=== PATIENT | female | born 1950 | race Hispanic/Latino ===

== ENCOUNTER 2020-04-20 10:49 | Outpatient (CLI) | payer MEDICARE, BC ==
--- NOTE | 2020-04-20 12:26 | Mammography Report ---
RIGHT DIGITAL DIAGNOSTIC MAMMOGRAM WITH CAD , 04/20/2020 RIGHT LIMITED BREAST ULTRASOUND CLINICAL INFORMATION / INDICATION: F/U abnormal mammogram TECHNIQUE: Digital right mammographic imaging was performed. Magnification views were obtained. Limit ed ultrasound was performed. This examination was interpreted with the benefit of Computer-Aided Dete ction (CAD) analysis. COMPARISON: Prior mammogram 04/02/2019 and 03/04/2019 FINDINGS: Breast Density: The breasts are heterogeneously dense, which may obscure small masses. MAMMOGRAPHIC FINDINGS: There is focal irregular asymmetry in the right breast at 2:00, middle depth. This appears slightly more prominent than on prior imaging and now contains visible calcifications. S pot magnification views confirm the presence of an irregular masslike density measuring approximately 11 mm in the 2:00 middle depth location. ULTRASOUND FINDINGS: Targeted ultrasound evaluation was performed of the area of interest. Sonograp hic evaluation of the right breast, upper inner quadrant, does demonstrate an irregular solid mass in the 1:00 position, 5 cm from nipple measuring approximately 9 mm in diameter. There are a few calcif ications identified within the mass, as noted mammographically. IMPRESSION: Solid irregular mass with associated calcifications in the right breast at 1-2:00. The ap pearance is concerning for breast carcinoma. Further evaluation with surgical consultation and ultras ound-guided biopsy is recommended. Follow up recommendation: Surgical consultation with ultrasound-guided biopsy. BI-RADS Category 5: Highly Suggestive of Malignancy. A "normal" or negative report should not discourage follow up or biopsy of a clinically significant f inding. A written summary of these findings will be mailed to the patient. The patient will be entered into a mammography reporting system which will generate a reminder letter for the patient's next appointmen t at the appropriate interval. According to the [employer], yearly mammograms are recommended starting at age 40 and continuing as long as a woman is in good health. Breast MRI is recommended for women with an mindy roximately 20-25% or greater lifetime risk of breast cancer, including women with a strong family his tory of breast or ovarian cancer and women who have been treated for Hodgkin's disease. Signer Name: Luciana Solares MD Signed: 04/20/2020 12:21 PM Workstation Name: [id number]
== END 2020-04-20 10:50 | disposition home or self-care (01) ==
LOC: SPVWC 10:49
PROVIDERS: ATTEND Surgery
DX: R92.1 Mammographic calcification found on diagnostic imaging of breast (principal)

== ENCOUNTER 2020-04-27 14:05 | Outpatient (CLI) | payer MEDICARE, BC ==
--- NOTE | 2020-04-27 15:16 | Mammography Report ---
DIGITAL DIAGNOSTIC MAMMOGRAM WITH CAD , 04/27/2020 CLINICAL INFORMATION / INDICATION: The patient has a history of abnormal right mammogram and underwen t ultrasound-guided biopsy of the right breast earlier today. Left mammogram is performed to keep pat ient on routine screening schedule. TECHNIQUE: Digital left mammographic imaging was performed. This examination was interpreted with the benefit of Computer-aided Detection analysis. COMPARISON: 03/04/2019, 03/01/2017 FINDINGS: Breast Density: The breasts are heterogeneously dense, which may obscure small masses. No dominant mass, suspicious calcifications or architectural distortion in the left breast. IMPRESSION: No mammographic evidence of malignancy. Please note that patient had ultrasound-guided ri t breast biopsy today. Biopsy results are pending at this time. She has follow-up surgical consulta tion schedule with Dr. Avalos. Follow up recommendation: No recall. BI-RADS Category 2: Benign. A "normal" or negative report should not discourage follow up or biopsy of a clinically significant f inding. A written summary of these findings will be mailed to the patient. The patient will be entered into a mammography reporting system which will generate a reminder letter for the patient's next appointmen t at the appropriate interval. According to the [employer], yearly mammograms are recommended starting at age 40 and continuing as long as a woman is in good health. Breast MRI is recommended for women with an mindy roximately 20-25% or greater lifetime risk of breast cancer, including women with a strong family his tory of breast or ovarian cancer and women who have been treated for Hodgkin's disease. Signer Name: Patricia Hart MD Signed: 04/27/2020 3:12 PM Workstation Name: [id number]
--- NOTE | 2020-04-29 08:09 | Ultrasound Report ---
Procedure: Ultrasound-guided right biopsy, 04/27/2020 Clinical information/indication: Right breast mass. The patient presents for ultrasound-guided biopsy of irregular mass at the 1:00 position. Comparison: Diagnostic mammogram and ultrasound, 04/20/2020 Procedure: The benefits, indications and risks were discussed with the patient including but not limi elliott to bleeding, infection, hematoma formation, and inadequate tissue sampling. The patient agreed to proceed with both verbal and written consent. A timeout procedure was performed using 2 patient iden tifiers. The breast was prepped and draped in the usual sterile fashion. Lidocaine 1% with and without epineph rine were used for local anesthesia. Under direct ultrasound guidance, multiple core samples were obt ained of the mass at the 1:00 position 5 cm from the nipple. A biopsy marker was then placed. Biopsy device was removed and hemostasis achieved with manual pressure. A sterile dressing was applied to t he skin. The patient tolerated the procedure without difficulty. No complications were encountered. Postbiopsy instructions were discussed with the patient and given in writing. Specimens were sent to pathology . IMPRESSION: 1. Technically successful right breast biopsy. Biopsy results are pending and will be reported in an addendum. Signer Name: Patricia Hart MD Signed: 04/27/2020 3:06 PM Workstation Name: [id number]
== END 2020-04-27 14:06 | disposition home or self-care (01) ==
LOC: SPVWC 14:05
PROVIDERS: ATTEND Surgery
DX: N63.12 Unspecified lump in the right breast, upper inner quadrant (principal); R92.8 Other abnormal and inconclusive findings on diagnostic imaging of breast; C50.211 Malignant neoplasm of upper-inner quadrant of right female breast; Z17.0 Estrogen receptor positive status [ER+]
CPT/HCPCS: 88305

== ENCOUNTER 2020-05-17 10:09 | Outpatient (CLI) | payer MEDICARE, BC ==
--- NOTE | 2020-05-18 09:08 | Magnetic Resonance Report ---
Bilateral breast MRI with and without contrast. History: New diagnosis right breast cancer Procedure: Axial T1 and T2-weighted fat-sat images were obtained precontrast. 14 cc MultiHance was i njected intravenously and serial axial T1-weighted images with fat saturation were obtained postcontr ast. 3-D MIP projections, Kinetic analysis and subtraction imaging was utilized to evaluate. A [employer] 8 channel breast coil was utilized for image acquisition. Comparison: Right mammogram 04/20/2020, left mammogram 04/27/2020, right breast ultrasound 04/20/2020, rig ht breast ultrasound-guided biopsy images 04/27/2020 Findings: Background level of enhancement is moderate. No suspicious axillary or clavicular nodes are identified. No abnormal bone marrow signal is seen. No significant chest wall enhancement is noted. In the right lobe of the liver superior portion at the dome of the diaphragm, a hyperintense ovoid 18 mm lesion is seen on coronal STIR and T2-weighted sequ ences, likely a cyst. Right breast: Fibrocystic changes are seen. Moderate background proliferative changes reduce sensitiv ity. These areas appear to show benign kinetics. The known 11 mm malignant lesion with biopsy changes is seen in the upper right breast just medial to the midline plain. This is approximately 4 cm from the chest wall, 2.3 cm from the medial skin surface, and 5.2 cm from the nipple. No other significant lesions are seen. Left breast: Mild to moderate proliferative changes are seen decreasing sensitivity. Within the fat o f the medial left mid breast at the level of the nipple at 9:00, 5 cm from the nipple, 5.3 cm from th e chest wall, and 1.2 cm from the medial skin surface, a well-defined and somewhat reniform 5 mm nodu le is seen with mild enhancement showing benign kinetics. This shows increased signal on T2-weighted imaging. No obvious mammographic correlate is seen. No other lesions are seen. Impression: 1. Known malignant lesion is seen on the right with biopsy changes. Though there are moderate pleura changes in multiple areas, no strongly suspicious lesion is seen elsewhere the right breast. 2. Probable small lymph node in the medial left breast. I doubt this is significant lesion but I woul d suggest targeted ultrasound. BIRADS: 0: Incomplete - needs additional imaging evaluation Signer Name: Marco A Catalan MD Signed: 05/18/2020 9:04 AM Workstation Name: [id number]
== END 2020-05-17 10:10 | disposition home or self-care (01) ==
LOC: SPVIMAG 10:09
PROVIDERS: ATTEND Surgery
DX: C50.211 Malignant neoplasm of upper-inner quadrant of right female breast (principal); R91.8 Other nonspecific abnormal finding of lung field; R59.0 Localized enlarged lymph nodes; N60.11 Diffuse cystic mastopathy of right breast
CPT/HCPCS: A9577; C8908; 77049

== ENCOUNTER 2020-06-08 09:49 | Outpatient (CLI) | payer MEDICARE, BC ==
--- NOTE | 2020-06-08 11:39 | Ultrasound Report ---
ULTRASOUND BREAST LEFT LIMITED, 06/08/2020 CLINICAL INFORMATION / INDICATION: Patient presents for second look ultrasound of an enhancing nodul e in the left breast seen on recent breast MRI. Patient has recent biopsy proven right breast cancer. TECHNIQUE: Targeted ultrasound evaluation was performed of the area of interest. COMPARISON: Breast MRI 05/17/2020 and prior mammograms dating back to 03/01/2017 (under name Arnav Karsonemerson david). FINDINGS: Targeted ultrasound was performed of the 9:00 left breast. There are 2 foci of benign fibrocystic lucian nge in the left breast 9:00 position located 2 cm from the nipple, each measuring up to approximately 5 mm. There is no definite sonographic correlate for the small enhancing nodule seen on recent MRI. However, the nodule on MRI demonstrated benign features most compatible with a benign intramammary ly mph node. Additionally, there appears to be a corresponding nodular density mammographically which is stable compared with prior mammograms dating back to 02/2017, further suggesting a benign etiology. IMPRESSION: 1. No sonographic correlate for the small nodular density seen on recent MRI. However, the nodule dem onstrates benign MRI features and appears to be stable mammographically dating back to at least 2016, compatible with a benign etiology. No suspicious sonographic abnormality identified. Of note, patient is currently being managed for known right breast cancer. Follow up recommendation: No recall. BI-RADS Category 2: Benign. A normal or "negative" report should not preclude biopsy or follow-up of a clinically suspicious find ing. Signer Name: Aaliyah Villatoro MD Signed: 06/08/2020 11:34 AM Workstation Name: [id number]
== END 2020-06-08 09:50 | disposition home or self-care (01) ==
LOC: SPVWC 09:49
PROVIDERS: ATTEND Surgery
DX: N60.12 Diffuse cystic mastopathy of left breast (principal); R92.0 Mammographic microcalcification found on diagnostic imaging of breast

== ENCOUNTER 2020-06-27 06:27 | Day surgery (SDC) | payer MEDICARE ==
[2020-06-23 11:19] LABS: Hematocrit 38.2 % (30.3-42.9); Hemoglobin 13.5 gm/dl (10.1-14.3); Mean Corpuscular HGB Conc 35 % (30-34); Mean Corpuscular Volume 94 fl (79-97); Platelet Count 263 K/mm3 (140-440); Red Blood Count 4.08 M/mm3 (3.65-5.03); Red Cell Distribution Width 13.4 % (13.2-15.2)
[~2020-06-27 06:27] MED LIST: ACETAMINOPHEN 500 MG TAB PO SCH; CELECOXIB 200 MG CAP PO NR; GABAPENTIN 300 MG CAP PO NR; LACTATED RINGERS 1,000 ML IV SCH; MIDAZOLAM 2 MG/2 ML INJ IV NR; ceFAZolin/Water 2 GM/20 ML 2 GM/20 ML SYRINGE IV NR; fentaNYL 100 MCG/2 ML INJ IV PRN
--- NOTE | 2020-06-27 07:06 | Anesthesia Day of Surgery ---
Anesthesia Day of Surgery - Day of Surgery Patient Examined: Yes Patient H&P Reviewed: Yes Patient is NPO: Yes
--- NOTE | 2020-06-27 07:06 | Anesthesia Consultation ---
Anesthesia Consult and Med Hx Date of service: 06/27/20 - Airway Anesthetic Teeth Evaluation: Good ROM Head & Neck: Adequate Mental/Hyoid Distance: Adequate Mallampati Class: Class II Intubation Access Assessment: Good - Pulmonary Exam CTA: Yes - Cardiac Exam Cardiac Exam: RRR - Pre-Operative Health Status ASA Pre-Surgery Classification: ASA2 Proposed Anesthetic Plan: General Nerve Block: ESB - Pulmonary Hx Smoking: No Hx Asthma: No COPD: No Hx Pneumonia: No Hx Sleep Apnea: No (SNORES OCC.) - Cardiovascular System Hx Hypertension: No Hx Heart Attack/AMI: No Hx Pacemaker: No Hx Internal Defibrillator: No Hx Heart Murmur: No - Central Nervous System Hx Back Pain: Yes (LOWER) - Gastrointestinal Hx Gastroesophageal Reflux Disease: Yes - Endocrine Hx End Stage Renal Disease: No Hx Cirrhosis: No Hx Liver Disease: No - Hematic Hx Sickle Cell Disease: No - Other Systems Hx Cancer: No
[2020-06-27] MEDS ORDERED: METHYLENE BLUE 50 MG/10 ML AMP ONE (07:15)
[2020-06-27] MEDS ORDERED: SODIUM CHLORIDE P/F VIAL 10 ML 10 ML ONE (07:15)
[2020-06-27] MEDS ORDERED: ONDANSETRON 4 MG/2 ML INJ IV PRN (07:30)
[2020-06-27] MEDS ORDERED: fentaNYL 100 MCG/2 ML INJ IV PRN (07:30)
[2020-06-27] MEDS ORDERED: LIDOCAINE (1%) 10 MG/1 ML VIAL 20 ML MDV ONE ×4 (07:53→08:59)
[2020-06-27] MEDS ORDERED: BUPIVACAINE/PF (0.5%) 5 MG/1 ML 30 ML VIAL INFILTRATI ONE (08:04)
[2020-06-27] MEDS ORDERED: BUPIVACAINE/PF (0.25%) 2.5 MG/ML 30 ML VIAL INFILTRATI ONE ×2 (08:16→08:59)
[2020-06-27] MEDS ORDERED: dexAMETHasone 4 MG/ML VIAL ONE (08:17)
[2020-06-27] MEDS ORDERED: BUPIVACAINE-EPINEPHRINE/PF 0.5%-1:200,000 (30 ML) VIAL INFILTRATI ONE (08:17)
--- NOTE | 2020-06-27 08:36 | Mammography Report ---
MAMMOGRAPHIC GUIDED RIGHT BREAST NEEDLE LOCALIZATION, 06/27/2020 CLINICAL INFORMATION / INDICATION: RT BREAST CANCER. COMPARISON: 06/08/2020. 04/27/2020. 04/20/2020. PROCEDURE: Risks, benefits and indications to the procedure were discussed with the patient. The patient agreed to proceed with both verbal and written consent. A timeout procedure was performed with 2 patient unique ntifiers. The breast was prepped with betadine in the usual sterile fashion. Approximately 5 cc of Lidocaine 1% was used for local anesthesia. Under direct digital mammographic guidance, a localization wire was p laced in satisfactory position with distal tip traversing the targeted lesion. Post-biopsy mammogram confirms satisfactory positioning of the localization wire. The wire was secured to the skin with a s terile dressing. The patient tolerated procedure without difficulty. No complications were encountered. IMPRESSION: 1. Satisfactory mammographic guided wire localization of the right breast. Signer Name: Braulio Ibrahim Jr, MD Signed: 06/27/2020 8:32 AM Workstation Name: [id number]
[2020-06-27] MEDS ORDERED: propofoL 200 MG/20 ML VIAL IV ONE (09:31)
[2020-06-27] MEDS ORDERED: LIDOCAINE MPF (2%) 20 MG/1 ML VIAL 5 ML ONE (09:31)
[2020-06-27] MEDS ORDERED: HYDROmorphone 1 MG/1 ML INJ ONE (09:31)
[2020-06-27] MEDS ORDERED: PHENYLEPHRINE/NS 1,000 MCG/10 ML SYRINGE (OR USE) IV ONE (09:58)
[2020-06-27] MEDS ORDERED: METHYLENE BLUE 50 MG/10 ML AMP IRRIGATION ONE (10:44)
[2020-06-27] MEDS ORDERED: WATER FOR IRRIG STERILE 1,500 ML BOTTLE IR ONE (10:45)
[2020-06-27] MEDS ORDERED: ONDANSETRON 4 MG/2 ML INJ ONE (11:48)
[2020-06-27] MEDS ORDERED: LACTATED RINGERS 1,000 ML ONE (12:15)
--- NOTE | 2020-06-27 12:43 | Operative Report ---
Operative Report Operative Report: Operative Report: June 27, 2020 Preoperative diagnosis: Right breast cancer of the upper inner quadrant Postoperative diagnosis: Same Procedure: Right breast needle localization partial mastectomy of the upper inner quadrant with SLNB Surgeon: Ellen Avalos MD Extension Course Counselor: Romeo Sequeira MD Anesthesia: General Findings: Right wire and clip present within radiograph specimen; x3 SLNs Complications: None EBL: Less than 50 cc Disposition: PACU in good condition Indications for operative procedure: This is a 69 year old lady with newly diagnosed right breast cancer of the upper inner quadrant, Stage I [id number] ER/WI positive (1:00 position 5 cm FN); IDCA grade 1. Recommendations are to proceed with breast conservation. Radiology to place wire at location of cancer. She understands the role of adjuvant radiation therapy and Oncotype DX will be obtained by medical oncology. She wished to proceed with the above procedure. Procedure in detail: The patient was taken to radiology for wire placement for localization known area of cancer. Anesthesia placed right pectoral block. Patient was then taken to the operating room. Gen. anesthesia was administered. The right nipple was injected with radioisotope. Right breast and axilla were prepped and draped in the normal sterile operative fashion. The wire was identified. Timeout was performed. Gamma probe was inserted into the axilla. The area of hot spot was identified. A right axillary incision was made with a 15 blade knife with dissection taken down to the subcutaneous tissues. The axillary fascia was opened with the Bovie cautery. 3 SLNs were identified and dissected free. All remaining counts were less than 10% of the highest count. Lymph nodes were sent to pathology for permanent processing. Hemostasis was obtained in the right axillary cavity. Axillary cavity was appropriately irrigated and suct ioned. Hemostasis was noted. Axillary fascia was approximated and closed using interrupted 3-0 Vicryl and the skin brought together and closed using a running 4-0 Monocryl followed by skin affix. Attention was then taken towards the right breast. A periareolar breast incision around 1:00 position was made with a 15 blade knife and dissection taken down to subcutaneous tissues. First began raising of the anterior flap with removal of the wire from the skin with dissection taken superiorly past the area of known maglignancy and then taken down to the pectoralis muscle, followed by raising of the inferior flap, medial flap and lateral flap with all flaps taken past the area of known malignancy and then posteriorly down to the pectoralis muscle. The breast area of concern was appropriately removed posteriorly from the pectoralis muscle with the aid of the Bovie cautery. The wire was not encountered. Specimen was marked and then sent to pathology and radiology; radiograph specimen with wire and clip present. Breast cavity was irrigated and hemostasis was obtained. Then proceeded with complex closure.The posterior deep breast tissues were then mobilized to approximated and cover the pectoralis muscle. The posterior deep breast tissues were approximated and closed using interrupted 3-0 Vicryl. The subcutaneous tissues were then approximated and closed using interrupted 3-0 Vicryl followed by closing of the skin with a running 4-0 Monocryl and skin affix. The patient tolerated surgery very well and she was awaken from anesthesia without any complication and transported to PACU in good condition.
--- NOTE | 2020-06-27 12:46 | Short Stay Summary ---
Short Stay Documentation Date of service: 06/27/20 - History H&P: obtained from office - Allergies and Medications Current Medications: Allergies No Known Allergies Allergy (Verified 06/27/20 07:38) Home Medications Medication Instructions Recorded Confirmed Last Taken Type Apremilast [Otezla] 30 mg PO BID 06/17/20 06/27/20 06/26/20 20:00 History oxyCODONE /ACETAMINOPHEN [Percocet 1 tab PO Q6HR PRN #12 tablet 06/27/20 U nknown Rx 5/325] Active Medications Acetaminophen (Acetaminophen 500 Mg Tab) 1,000 mg PO PREOP MONI Stop: 06/27/20 23:59 Last Admin: 06/27/20 07:10 Dose: 1,000 mg Documented by: Celecoxib (Celecoxib 200 Mg Cap) 200 mg PO PREOP NR Stop: 06/27/20 23:59 Last Admin: 06/27/20 07:10 Dose: 200 mg Documented by: Fentanyl (Fentanyl 100 Mcg/2 Ml Inj) 100 mcg IV ONCE PRN PRN Reason: sedation for nerve block Stop: 06/27/20 23:59 Last Admin: 06/27/20 08:59 Dose: 100 mcg Documented by: Fentanyl (Fentanyl 100 Mcg/2 Ml Inj) 50 mcg IV Q5MIN PRN PRN Reason: Pain , Severe (7-10) Stop: 06/27/20 20:00 Gabapentin (Gabapentin 300 Mg Cap) 300 mg PO PREOP NR Stop: 06/27/20 23:59 Last Admin: 06/27/20 07:10 Dose: 300 mg Documented by: Cefazolin Sodium (Ancef/Sterile Water 2 Gm/20 Ml) 2 gm in 20 mls @ 80 mls/hr IV PREOP NR; Protocol Stop: 06/27/20 23:01 Lactated Ringer's (Lactated Ringers) 1,000 mls @ 100 mls/hr IV DIRECT MONI Stop: 06/27/20 23:59 Last Admin: 06/27/20 08:20 Dose: 100 mls/hr Documented by: Midazolam HCl (Midazolam 2 Mg/2 Ml Inj) 2 mg IV PREOP NR Stop: 06/27/20 23:59 Last Admin: 06/27/20 08:58 Dose: 2 mg Documented by: Ondansetron HCl (Ondansetron 4 Mg/2 Ml Inj) 4 mg IV ONCE PRN PRN Reason: Nausea And Vomiting Stop: 06/27/20 18:00 - Brief post op/procedure progress note Date of procedure: 06/27/20 Pre-op diagnosis: Right breast cancer upper inner quadrant Post-op diagnosis: same Procedure: Right partial mastectomy with SLNB Anesthesia: GETA Findings: Right breast mass and clip present; x3 SLNs Surgeon: IOANA PINK Estimated blood loss: minimal Pathology: list Specimen disposition: to lab Condition: stable - Disposition Condition at discharge: Good Disposition: DC-01 TO HOME OR SELFCARE Short Stay Discharge Plan Activity: other (no heavy lifting) Diet: regular Wound: keep clean and dry (may shower in 48 hours; no heavy lifting; wear breast binder; no baths) Follow up with: IOANA PINK MD [Staff Physician] - 7 Days Prescriptions: oxyCODONE /ACETAMINOPHEN [Percocet 5/325] 1 tab PO Q6HR PRN #12 tablet PRN Reason: Pain
--- NOTE | 2020-06-27 14:01 | Post Anesthesia Evaluation ---
- Post Anesthesia Evaluation Patient Participated: Yes Airway Patent: Yes Stable Respiratory Function: Yes Nausea/Vomiting: No Temp > 96.8F: Yes Pain Manageable: Yes Adequeate Hydration: Yes Anesthesia Complications: No
[2020-06-27 14:42] VITALS: BP 122/77
--- NOTE | 2020-06-27 16:08 | Mammography Report ---
BREAST SPECIMEN RADIOGRAPH HISTORY: Lumpectomy FINDINGS/IMPRESSION: The submitted radiograph or radiographs demonstrate(s) the presence of a biopsy marker and distal asp ect of a localization wire within a soft tissue mass, as expected. Signer Name: Luciana Solares MD Signed: 06/27/2020 3:47 PM Workstation Name: [id number]
== END 2020-06-27 06:28 | disposition home or self-care (01) ==
LOC: OR 06:27
PROVIDERS: ATTEND Surgery
DX: C50.211 Malignant neoplasm of upper-inner quadrant of right female breast (principal); I89.8 Other specified noninfective disorders of lymphatic vessels and lymph nodes; Z17.0 Estrogen receptor positive status [ER+]; Z20.822 Contact with and (suspected) exposure to COVID-19; K21.9 Gastro-esophageal reflux disease without esophagitis; M19.90 Unspecified osteoarthritis, unspecified site; G43.909 Migraine, unspecified, not intractable, without status migrainosus; Z90.710 Acquired absence of both cervix and uterus; Z98.890 Other specified postprocedural states; Z79.899 Other long term (current) drug therapy
CPT/HCPCS: 19281; 19301; 36415; 38525; 38792; 64450; 76098; 76942; 78800; 85027; 88307; 88342; A4648; A9541; J0690; J1100; J1170; J2250; J2370; J2405; J2704; J3010; J7120; Q9968; U0003; 88333

== ENCOUNTER 2020-08-23 10:50 | Outpatient (CLI) | payer MEDICARE, BC ==
--- NOTE | 2020-08-23 13:48 | Mammography Report ---
DEXA BONE DENSITY SCAN INDICATION / CLINICAL INFORMATION: BREAST CA. 69 years Female COMPARISON: None available. LUMBAR SPINE, L1-L4: - Bone mineral density (BMD) = 0.785 g/cm2. - T-score = -2.4 - Z-score = -0.3 Change (%) since most recent prior (if available): None available. LEFT HIP, NECK : - Bone mineral density (BMD) = 0.741/cm2. - T-score = -1.0 - Z-score = 0.8 Change (%) since most recent prior (if available): None available. IMPRESSION: 1. WHO Classification: Osteopenia. Fracture Risk: Increased. 2. 10-Year Fracture Risk (FRAX) = Major Osteoporotic Not reported.% / Hip: Not reported.% FRAX generally not reported for patients with normal or osteoporotic BMD, in [id number] miriam ents younger than age 50, or in patients undergoing pharmacotherapy BMD Reporting Guidelines (ISCD, 2015) BMD Reporting in Postmenopausal Women and in Men Age 50 and Older - T-scores are preferred. - The WHO densitometric classification is applicable. BMD Reporting in Females Prior to Menopause and in Males Younger Than Age 50 - Z-scores, not T-scores, are preferred. This is particularly important in children. - A Z-score of -2.0 or lower is defined as below the expected range for age, and a Z-score above -2.0 is within the expected range for age. - Osteoporosis cannot be diagnosed in men under age 50 on the basis of BMD alone. - The WHO diagnostic criteria may be applied to women in the menopausal transition. http://www.iscd.org/official-positions/8599-hbka-dnybybrl-positions-adult/ Signer Name: Cory Pop MD Signed: 08/23/2020 1:44 PM Workstation Name: [id number]
== END 2020-08-23 10:51 | disposition home or self-care (01) ==
LOC: SPVWC 10:50
PROVIDERS: ATTEND Internal Medicine Hematology & Oncology
DX: Z13.820 Encounter for screening for osteoporosis (principal); C50.211 Malignant neoplasm of upper-inner quadrant of right female breast; Z78.0 Asymptomatic menopausal state; Z79.811 Long term (current) use of aromatase inhibitors
CPT/HCPCS: 77080